=== PATIENT | female | born 1980 | race Caucasian/White ===

== ENCOUNTER 2024-02-27 09:40 | Emergency (ER) | payer MEDICAID, SELFPAY ==
[2024-02-27 10:56] VITALS: BP 117/81; PULSE 83; RESP 20; TEMP 37.9; O2SAT 98; BMI 26.6
--- NOTE | 2024-02-27 10:59 | XR_ITS ---
Examination: CT abdomen and pelvis without contrast. Coronal 3-D reconstructions. Sagittal 2-D reconstructions. Date and time of exam:February 27, 2024 1250 hrs. Indications: Left lower abdominal pain beginning today CTDI: vol (mGy): 7.71 DLP: (mGycm): 422 Technique: Axial images of the abdomen have been obtained, 3 mm slice thickness Intravenous contrast material has not been administered. Low dose protocols were performed. One or more of the following dose reduction techniques were used; automated exposure control, adjustment of the mA and/or KV according to patient size, use of iterative reconstruction technique. Findings: No focal liver or splenic lesions No gallstones No pancreatic or adrenal mass No renal or ureteral calculi, no hydronephrosis Normal appendix No bowel obstruction or diverticulitis Urinary bladder intact Advanced degenerative disc disease L4-L5 Impression: No renal or ureteral calculi, no hydronephrosis Normal appendix No bowel obstruction diverticulitis or free air
--- NOTE | 2024-02-27 11:03 | EDNOTE_ITS ---
ED Abdominal Pain RME/HPI General Chief Complaint: Abdominal Pain Stated complaint: ABDOMINAL PAIN Time seen by provider: 02/27/24 10:04 Arrival date/time: 02/27/24 09:40 Limitations: no limitations RME / HPI RME / HPI narrative: History of Present Illness (HPI) A patient reports pain without any identified modifying or aggravating factors. They deny experiencing fevers, chills, sweats, chest pain, cough, shortness of breath, vomiting, diarrhea, or urinary symptoms. On examination, there is spasm and tenderness to palpation along the left rectus abdominis muscle. Any movement that engages this muscle, including coughing, causes discomfort. Labs are deemed not indicated. A CT scan of the abdomen and pelvis without contrast is unremarkable. Differential Diagnoses (Ddx) * Muscle Strain or Spasm: Given the specific tenderness and spasm along the left rectus abdominis muscle. * Abdominal Wall Pain Syndrome: Characterized by localized pain and tenderness without an obvious internal cause. * Intercostal Muscle Strain: Given the involvement of movements that engage the rectus abdominis. * Costochondritis: Though primarily affecting the chest area, it can sometimes present with abdominal muscle pain. * Hernia: To be ruled out despite unremarkable CT, especially if symptoms persist. Medical Decision Making (Mdm) * Symptom Management: * Pain Relief: Consider analgesics or muscle relaxants for relief. * Physical Therapy: For gentle stretching and strengthening exercises. * Reevaluation: * Follow-up Examination: To monitor for any changes or worsening of symptoms. * Patient Education: * Activity Modification: Advise on avoiding activities that exacerbate symptoms. * Reassurance: Educate the patient about the benign nature of the condition if no alarming features are present. Related Data Home Medications ?Medication ?Instructions ?Recorded ?Confirmed levetiracetam 500 mg tablet 1,500 mg PO BID 08/21/18 08/10/20 (Keppra) paroxetine HCl 40 mg tablet 40 mg PO QDAY 08/10/20 08/10/20 Previous Rx's ?Medication ?Instructions ?Recorded cyclobenzaprine 10 mg tablet 10 mg PO TID PRN muscle spasm #10 02/27/24 tabs Allergies Allergy/AdvReac Type Severity Reaction Status Date / Time gabapentin AdvReac Severe CAUSES SZ, Verified 02/27/24 09:41 pass out Review of Systems Review of Systems Systems Reviewed: All systems reviewed, normal except as documented Past Medical History Past Medical History NEUROLOGIC: Positive Neurological Disorders and Seizures CARDIAC: Negative Cardiac Disorders GASTROINTESTINAL: Positive Gastrointestinal Disorders REPRODUCTIVE: Positive Previous Pregnancies MUSCULOSKELETAL: Positive Musculoskeletal Disorders, Arthritis, Degenerative Disk Disease and Fibromyalgia ENDOCRINE: Negative Endocrine Disorders PSYCHO/SOCIAL: Positive Anxiety OTHER HISTORY: Positive Hospitalization Family History FAMILY HISTORY: Positive Family Cardiac Disorders, Family Gastrointestinal Problems, Family Cancer and Family Surgery Surgical History SURGICAL: Positive Abdominal Surgery, Lumpectomy and Hysterectomy Social History SMOKING STATUS: Current some day smoker SECOND HAND EXPOSURE: No SUBSTANCE USE: does not use ED Exam General Limitations: Present no limitations General appearance: Present alert and in distress (Mild ) Head Head exam: Present atraumatic Eye Eye exam: Present normal appearance, PERRL and EOMI ENT ENT exam: Present normal exam, normal oropharynx and mucous membranes moist Neck Neck exam: Present normal inspection, full ROM and trachea midline Chest Chest inspection: Present normal inspection and symmetric chest wall rise Respiratory Respiratory exam: Present normal lung sounds bilaterally Cardiovascular Cardiovascular exam: Present regular rate, normal rhythm and normal heart sounds Abdominal Exam Abdominal exam: Present soft, tenderness (Spasm tenderness of the left rectus abdominis muscle) and normal bowel sounds Extremities Exam Extremities exam: Present normal inspection and full ROM Back Exam Back exam: Present normal inspection and full ROM Neurological Exam Neurological exam: Present alert, oriented X3 and CN II-XII intact Psychiatric Psychiatric exam: Present normal affect and normal mood Skin Skin exam: Present warm, dry, intact and normal color Course Quality Measures none Orders Category Date Time Status CT abdomen pelvis wo con Stat Exams 02/27/24 10:59 Completed HCG Qualitative,Urine Stat Lab 02/27/24 11:00 Completed UA [Urinalysis] Stat Lab 02/27/24 11:00 Completed CYCLObenzaPRINE [Flexeril] Med 02/27/24 10:59 Discontinued 10 mg PO X1 ONE Ketorolac Inj [Toradol Inj] Med 02/27/24 10:59 Discontinued 60 mg IM X1 ONE Reevaluation(s) Reevaluation #1: Patient remains clinically stable throughout the emergency department visit. We reviewed all the results, analysis, and treatment plans. Patient is amenable to discharge. Strict return precautions were outlined. Patient was discharged in stable condition. Time: 14:30 Vital Signs Vital signs: Vital Signs Temperature 100.3 F 02/27/24 10:56 Pulse Rate 83 02/27/24 10:56 Respiratory Rate 20 02/27/24 10:56 Blood Pressure 117/81 02/27/24 10:56 Pulse Oximetry (%) 98 02/27/24 10:56 Oxygen Delivery Method Room Air 02/27/24 10:56 Pulse ox is 98% on room air which is adequate. Abdominal Pain MDM MDM Narrative MDM Narrative:: Debra Teresa, cezar scribing for and in the presence of Dr. Izaguirre. Patient data External records reviewed:: [facility] previous records (I reviewed ED visit on 06/25/2021) Clinical information provided by:: patient Social determinants that could affect healthcare access:: none Patient has the following chronic illnesses:: Seizures How is presenting disease/condition affected by chronic disease/condition?: uneffected by Evaluation data The following diagnostics were reviewed and interpreted by me:: lab results and radiology exam(s) Lab and/or radiology exams considered but not ordered:: None Interpretation Summary: Ordering Physician: Italo Izaguirre MD Date of Service: 02/27/24 Procedure(s): CT abdomen pelvis wo [facility] Accession Number(s): [id number] cc: BASILIO SCOTT MD; Italo Izaguirre MD; Bigg Rodriguez MD~ Examination: CT abdomen and pelvis without contrast. Coronal 3-D reconstructions. Sagittal 2-D reconstructions. Date and time of exam:February 27, 2024 1250 hrs. Indications: Left lower abdominal pain beginning today CTDI: vol (mGy): 7.71 DLP: (mGycm): 422 Technique: Axial images of the abdomen have been obtained, 3 mm slice thickness Intravenous contrast material has not been administered. Low dose protocols were performed. One or more of the following dose reduction techniques were used; automated exposure control, adjustment of the mA and/or KV according to patient size, use of iterative reconstruction technique. Findings: No focal liver or splenic lesions No gallstones No pancreatic or adrenal mass No renal or ureteral calculi, no hydronephrosis Normal appendix No bowel obstruction or diverticulitis Urinary bladder intact Advanced degenerative disc disease L4-L5 Impression: No renal or ureteral calculi, no hydronephrosis Normal appendix No bowel obstruction diverticulitis or free air Dictated By: Bigg Rodriguez MD Signed By: <Electronically signed by Bigg Rodriguez MD in OV> 02/27/24 1301 Medications / Prescriptions Medications or Prescriptions considered but not ordered:: None Medication administrations:: Medication Administration History Discontinued Medications Cyclobenzaprine HCl (Cyclobenzaprine 5 Mg Tablet) 10 mg PO X1 ONE Stop: 02/27/24 11:00 Last Admin: 02/27/24 11:41 Dose: 10 mg Documented By: NINOSKA Ketorolac Tromethamine (Ketorolac Inj 60 Mg/2 Ml Vial) 60 mg IM X1 ONE Stop: 02/27/24 11:00 Last Admin: 02/27/24 11:41 Dose: 60 mg Documented By: NINOSKA See above Consultations Consultation(s) initiated? (list below): No Diagnosis Differential diagnosis abdominal pain: abdominal pain, calculus of kidney, constipation and gastroenteritis Most likely diagnosis given after review of the tests above:: Abdominal spasms Admission Indicated Admission indicated?: not indicated Admission Request Was there a request for admission?: No Disposition Plan Disposition Plan: Discharge Discharge Attestation Discharge Attestation: The patient and all family members were given an opportunity to ask questions and understood the discharge instructions. Discharge instructions specifically effects, indications for sooner follow up or return to the emergency department, and the expected course of current diagnosis. Patient condition: Stable Discharge Plan Plan Patient Disposition: HOME (Self Care) Patient condition on transfer: Stable Prescriptions/Referrals Prescriptions/Med Rec: New cyclobenzaprine 10 mg tablet 10 mg PO TID PRN (Reason: muscle spasm) Qty: 10 0RF No Action levetiracetam [Keppra] 500 mg Tablet 1,500 mg PO BID paroxetine HCl 40 mg tablet 40 mg PO QDAY Patient Comments: TAKE 1 TABLET BY MOUTH EVERY DAY Referrals: Basilio Scott MD [Primary Care Provider] - In 1 week Problem List Clinical Impression: Abdominal spasms Patient/Caregiver Discharge Instructions Education Materials: ED Muscle Spasm Print Language: Hebrew Stand Alone Forms: Erin Award Info., Patient Portal Info Letter
[2024-02-27 11:11] LABS: Collection Type, Urine Clean Catch
[2024-02-27 11:29] LABS: Bacteria,Urine Rare; Bilirubin,Urine Negative (Negative); Blood,Urine Trace (Negative); Clarity,Urine Clear (Clear/Hazy); Color,Urine Yellow (Lt Yel-Yel); Glucose, Urine Negative (Negative); Ketones,Urine 1+ (Negative); Leukocyte Esterase,Urine Negative (Negative); Nitrite,Urine Negative (Negative); PH,Urine 6.5 (5.0-7.0); Protein,Urine 1+ (Neg - Trace); RBC,Urine 2 /hpf (0-3); Specific Gravity,Urine 1.016 (1.001-1.035); Squamous Epithelial Cell,Urine 1 /hpf (0-5); WBC,Urine < 1 /hpf (0-5)
[2024-02-27] MEDS: CYCLObenzaPRINE 5 MG TABLET 10 MG PO (11:41)
[2024-02-27] MEDS: KETOROLAC INJ 60 MG/2 ML VIAL IM (11:41)
[2024-02-27 12:03] LABS: HCG Qualitative,Urine Negative
[2024-02-27 13:51] VITALS: BP 108/72; PULSE 67; RESP 17; TEMP 37.2; O2SAT 95
--- NOTE | 2024-02-27 14:12 | PC.NURSE ---
Patient came to the ED for SMITH and cough X4 days. Patient states when she was coughing last night she started having abdominal pain that carried to this morning. POC updated patient verbalized understanding.
[2024-02-27 15:44] VITALS: BP 110/80; PULSE 70; RESP 18; TEMP 37.2; O2SAT 99
== END 2024-02-27 15:44 | disposition home or self-care (01) ==
PROVIDERS: Emergency Provider Emergency Medicine; PCP Internal Medicine Endocrinology, Diabetes & Metabolism
DX: M62.838 Other muscle spasm (principal); R10.32 Left lower quadrant pain
CPT/HCPCS: 74176; 81001; 81025; 96372; 99284; J1885; A9270